=== PATIENT | male | born 1945 | race Caucasian/White ===

== ENCOUNTER 2020-08-14 11:25 | Day surgery (SDC) | payer MEDICARE, OTHER, SELFPAY ==
--- NOTE | 2020-08-11 19:05 | PCM.HP.BLA ---
History and Physical Date of Admission: 08/14/20 HISTORY AND PHYSICAL ? Gabbie Gary 1945 ? ? REFERRING PHYSICIAN: Jan Lujan III, MD ? CHIEF COMPLAINT: Consult (Gallbladder Mass) ? HPI: The patient is a pleasant 75 year old male who presents with findings of gallbladder mass by CT scans. He has had two serial CT scans - 02/10/2020 and 07/19/2020 with findings of a 1.6 cm gallbladder mass, with no changes during this time period. The patient denies abdominal pain. He denies nausea/vomiting. He denies jaundice or icterus. He has a history of prostate cancer (diagnosed in 2011) for which he is presently on Lupron, Zytiga and prednisone ? ? PAST MEDICAL HISTORY Diagnosis Date ? 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 BPH (benign prostatic hyperplasia) ? ? elevated PSA with negative biopsies ? Depression 08/30/2018 ? 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 Elevated ferritin level 12/17/2012 ? Essential hypertension, benign 01/08/2011 ? Hyperlipidemia LDL goal < 130 06/28/2010 ? Impaired fasting glucose 06/28/2010 ? Internal hemorrhoids without mention of complication ? ? Kidney stone 03/22/2012 ? Osteoarthritis of hip ? ? s/p bilateral total hip replacement ? Prostate cancer (HCC) ? ? PAST SURGICAL HISTORY Procedure Laterality Date ? COLONOSCOP W/ OR W/O BRSH SPEC ? 08/26/10 ? LITHROTRIPSY ? ? ? PROSTATE BIOPSY ? ? ? TOTAL HIP REPLACEMENT ? 10/22 ? Right ? TOTAL HIP REPLACEMENT ? 03/29 ? Left ? ? Current Outpatient Medications Medication Sig ? abiraterone (ZYTIGA) 250 mg tablet Take 4 tablets (1,000 mg) by mouth once daily on an empty stomach, 1 hour before or 2 hours after eating. ? predniSONE (DELTASONE) 5 mg tablet Take 1 tablet by mouth twice daily. ? hydroCHLOROthiazide (HYDRODIURIL, ESIDRIX) 25 mg tablet Take 1 tablet by mouth once daily. ? glipiZIDE (GLUCOTROL XL) 5 mg 24 hr tablet Take 1 tablet by mouth once daily. ? atorvastatin (LIPITOR) 20 mg tablet TAKE 1 TABLET BY MOUTH DAILY AT BEDTIME FOR CHOLESTEROL. ? losartan (COZAAR) 50 mg tablet Take 1 tablet by mouth once daily. ? albuterol HFA (PROAIR HFA) 90 mcg/actuation inhaler Inhale 2 Puffs as instructed every 6 hours as needed. ? ? ALLERGIES: Amlodipine and Lisinopril ? PERSONAL HISTORY: Social History ? Tobacco Use ? Smoking status: Never Smoker ? Smokeless tobacco: Never Used Vaping Use ? Vaping Use: Never used Substance Use Topics ? Alcohol use: Yes ? ? Comment: 1 drink per year ? Drug use: No ? FAMILY HISTORY Problem Relation Age of Onset ? None Mother ? ? other (CHF) Father ? ? Diabetes Son ? ? Hypertension Son ? ? None Brother ? ? None Sister ? ? The review of systems data was entered by the nurse and reviewed by me ? Nursing Notes: Anne Hatch LPN 08/06/2020 8:35 AM Signed REVIEW OF SYSTEMS: General: The patient denies fatigue, denies weight loss, denies weight gain, NOTES feeling hot, and denies feelings of cold. Eyes: The patient denies glaucoma, NOTES eye injury/surgery, does not wear glasses or contacts. Ear/Nose/Throat: The patient denies allergies, denies hayfever, denies ear infections, and denies bloody noses. Cardiovascular: The patient denies chest pain, denies heart disease, NOTES high blood pressure,denies cardiac stent, denies prior heart attack, denies irregular heart beat, denies high cholesterol, denies poor circulation, denies heart failure, other cardiac issues, denies claudication, denies cold feet, denies peripheral arterial stent. Respiratory: The patient denies tuberculosis, denies pneumonia, denies frequent cough, denies pulmonary embolism, denies shortness of breath, and denies coughing up blood. Gastrointestinal: The patient denies difficulty swallowing, denies acid reflux, denies ulcers, denies vomiting, denies jaundice/hepatitis, NOTES gallbladder problems, denies black or tarry stools, denies hemorrhoids, denies bleeding from rectum, denies diverticulitis, denies constipation, denies diarrhea, denies loss of stool control, and denies hernias. Kidney/Bladder: The patient NOTES kidney stones, denies urine infections, and denies bloody urine. Skin: The patient denies a history of skin cancer, denies bleeding/changing moles, and denies a history of skin rash. Neurologic: The patient denies a history of epilepsy/convulsions, denies headaches, denies head/spinal injuries, and denies stroke/TIA. Psychiatric: The patient denies psychiatric medications, denies depression, and denies voices, denies substance abuse. Endocrine: The patient denies thyroid disorders, denies diabetes, and denies hormonal problems. Hematologic: The patient NOTES a history of bruising, denies bleeding, and denies anemia, denies blood clots. Infections: The patient NOTES a history of measles and mumps, denies rheumatic fever, and denies sexually transmitted diseases. Musculoskeletal: The patient denies back pain/injury, denies back problems, denies sciatica, denies knee/foot trouble, NOTES arthritis, or denies gout. When was patient's last Mammogram screening? N/A Last Colonoscopy: 2010 [facility] ? ? PHYSICAL EXAMINATION: General: The patient is 75 year old male, well nourished, well hydrated in no acute distress. The patient is oriented to time, place, and person. VITALS: Blood pressure 138/74, pulse (!) 121, temperature (!) 35.6 ?C (96.1 ?F), height 179.1 cm (5' 10.5), weight 99.3 kg (219 lb), SpO2 98 %. Body mass index is 30.98 kg/m?. Head ? Normocephalic. EOM intact with sclera clear and no icterus noted. Neck - supple with no jugular venous distention noted. Trachea is midline. Lungs ? clear to auscultation. Normal breath sounds. No rales/rhonchi/wheezing noted. No labored breathing noted, such as retractions. No cough heard. Heart ? normal S1 and S2 auscultated. No rubs/clicks/murmurs noted. Regular rate. Abdomen ? soft and benign. Normal bowel sounds. No abdominal bruits noted. Difficult to determine if any masses or organomegaly due to body habitus. Extremities ? no calf tenderness noted. No pitting edema noted. Skin ? normal skin integrity. Neurological ? gait normal, no focal deficits noted. Psych ? calm and appropriate RADIOLOGIC STUDIES: As Noted ? ? IMPRESSION: gallbladder mass ? PLAN: I have discussed the above with the patient. I have reviewed the radiological studies. The fact that this lesion has not changed over several month - unlikely gallbladder cancer, in my opinion I have offered laparoscopic cholecystectomy, possible cholangiograms I have explained the procedure to the patient. I have counseled the patient as to the risks of the procedure, including but not limited to: infection, bleeding, injury to any blood vessels/nerves, scar tissue, injury to any intrabdominal organs, injury to bowel/bladder, injury to the common bile duct/biliary tree, bile leakage, intraabdominal abscess/bleeding, hernias at incisional sites, wound infections, complications of anesthesia, etc. ? the patient understands. ? The patient was offered a surgery/procedure . The provider and patient have discussed in detail the risk of exposure to and/or potential harm posed by the COVID-19 virus with having a surgery/procedure at this time versus the risk of? delaying the surgery/procedure. It is not possible to know either the risk of delaying the surgery or procedure or chance of getting an infection with perfect accuracy, but a joint decision was made between the patient and the provider ?to proceed at this time with the scheduled surgery/procedure. ? The patient wishes to proceed. He requests [facility] for surgery. I have answered all questions to the patient?s satisfaction and the patient has no further questions. ?. Diagnoses: (K82.8) Gallbladder mass Return to Clinic: The patient is instructed to follow-up with me after the procedure. ? Geraldine Tariq MD
--- NOTE | 2020-08-13 08:50 | EKG12_ITS ---
Test Reason : PREOP Blood Pressure : / mmHG Vent. 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
[2020-08-13 09:31] LABS: Hematocrit 38.8 % (40-54); Hemoglobin 12.7 g/dL (13.0-16.5); Mean Corp Hgb Conc 32.7 g/dL (32-36); Mean Corpuscular Hgb 30.6 pg (27.0-32.0); Mean Corpuscular Volume 93.5 fL (80-94); Mean Platelet Vol. 10.3 fl (6.2-12.0); Platelet Count 265 K/mm3 (150-450); RBC Distribution Width CV 13.6 % (11.6-14.6); RBC Distribution Width SD 46.6 fl (35.1-43.9); Red Blood Count 4.15 M/mm3 (4.6-6.2); White Blood Count 9.5 K/mm3 (4.4-11.0)
[2020-08-13 09:40] LABS: International Normalized Ratio 0.9
[2020-08-13 10:03] LABS: AST(SGOT) 18 U/L (15-37); Alanine Aminotransfer ALT/SGPT 36 U/L (16-61); Albumin, Serum 3.5 g/dL (3.2-5.0); Alkaline Phosphatase 87 U/L (45-117); Anion Gap 6 (5-15); BUN 35 mg/dL (7-18); Bilirubin, Direct 0.37 mg/dL (0.00-0.30); Calcium,Total 9.5 mg/dL (8.5-10.1); Chloride 104 mmol/L (98-107); EST Glomerular Filtration Rate 52 mL/min (>60); Est Glom Filt Rate - Afr Amer 63 mL/min (>60); Globulin 3.6 g/dL (2.2-4.2); Glucose 129 mg/dL (74-106); Potassium 3.8 mmol/L (3.5-5.1); Protein, Total 7.1 g/dL (6.4-8.2); Sodium Level 138 mmol/L (136-145)
[2020-08-14] VITALS (7 sets, daily range): BP systolic 100–141; BP diastolic 64–80; PULSE 79–90; RESP 12–16; TEMP 36–36.8; O2SAT 96–99
--- NOTE | 2020-08-14 | GALL_PTH ---
PATIENT: FLORIN CHAVEZ LOC: [facility] – [place], [place] U#:[id number] AGE/SX: 75/M ROOM: RE08/14/[address]: Dr. Geraldine Tariq MD : 1945 BED: DIS: 08/14/2020 SPEC #: [id number] RECD: 08/15/20 08:40 STATUS: MARCO ANTONIO REQ #: [id number] SAGAR: 08/14/20 00:[address]: Geraldine Tariq DEPT: SURGICAL PATHOLOGY RECD BY: Douglas Moreau ENTERED: 08/15/20 08:40 SP TYPE: LUIS HERNANDEZ DR: Dr. Jan Lujan III, MD Tissues: Gallbladder, NOS Procedures: Surgery Specimen Level III HEADER OPERATION: Laparoscopic cholecystectomy with IOC PRE-OP DIAGNOSIS: Gallbladder mass TISSUE SUBMITTED: Gallbladder MICROSCOPIC DIAGNOSIS Gallbladder, cholecystectomy: Chronic cholecystitis and cholelithiasis. AM:fran 08/16/2020 MICROSCOPIC DESCRIPTION Slides are reviewed. GROSS DESCRIPTION Received is one container labeled with the patient's name and designated gallbladder. The specimen consists of a gallbladder measuring 6 cm in length and up to 3 cm in diameter. The external surface is pink-chapa, smooth and glistening for the most part. Focally it is granular, hemorrhagic and contains cautery artifact. The gallbladder contains green-yellow mucoid bile and multiple irregular black stones measuring in aggregate 3.5 x 2 x 05 cm and 0.1 to 0.2 cm in greatest dimension. The mucosa is bile-stained and without any mass lesions. The gallbladder wall measures up to 0.3 cm in thickness. Rubber Trimmer sections from the gallbladder and the cystic duct are submitted in one cassette. / SJ:fran 08/15/20 TC:3 CPT: 42555
[2020-08-14] MEDS: Lactated Ringers 1,000 ML 100 ML IV (14:35)
--- NOTE | 2020-08-14 14:40 | EX.PCM.DISCH ---
Discharge Instructions Outpatient Procedure Reason For Visit: RITIKA [facility] Diet Discharge Diet: No restrictions (drink plenty of fluids, avoid carbonated beverages for a couple of days) Activity Discharge Activity: Return to Normal Activity (no lifting greater than 20 pounds for two weeks) and - Dressing / Incision Call your doctor if your incision/area has: Continuous Slow Oozing, Sudden Increased Bleeding and Increased Pain/ Swelling Follow Up Care Please Follow Up With: Geraldine Tariq MD When: in 1-2 weeks, call Test Results: Test results from this visit will be discussed in further detail at your follow-up appointment, if applicable. Discharge Plan Admission Attending Provider: Geraldine Tariq Primary Care Provider: Jan Lujan III Instructions Additional Instructions / Restrictions: Recommended pain control regimen - May take 600 mg ibuprofen (Motrin) and then in 3-4 hours, may take 650 mg acetaminophen (Tylenol), then in 3-4 hours may take 600 mg ibuprofen, then in 3-4 hours may take 650 mg acetaminophen and so on for 2-3 days May take narcotic pain medication for pain that is not controlled by above and at night for comfort through the night Leave dressings in place May get dressings wet in shower - do not scrub in the area and pat dry Ice applied to areas of discomfort may help No lifting/pushing/pulling greater than 20 pounds for two weeks Please call for a follow up appointment in 1-2 weeks, Discharge Orders/Prescriptions Prescriptions: New hydrocodone-acetaminophen 5-325 mg tablet 1 tab PO Q8H PRN (Reason: Pain) 5 Days Qty: 15 RF: 0 No Action losartan 50 MG tablet 50 mg PO DAILY RF: 0 atorvastatin 20 MG tablet 20 mg PO QHS RF: 0 hydrochlorothiazide 12.5 MG capsule 12.5 mg PO DAILY RF: 0 hydrocodone-acetaminophen 1 TABLET tablet 1 - 2 tab PO Q4H PRN PRN (Reason: Pain) Qty: 20 RF: 0 abiraterone 250 MG tablet 1,000 mg PO DAILY RF: 0 Other Ambulatory Orders: 12 Lead EKG (Routine) Location: None Selected Ordered By: Dr. Abbe Marina Referrals: Jan Lujan III, MD [Primary Care Provider] - Disposition Discharge Orders: Discharge Patient (Routine); Ordered 08/14/20 Ordered By: Dr. Geraldine Tariq
--- NOTE | 2020-08-14 14:43 | PCM.OPRPT ---
Report of Operation Date of Procedure: 08/14/20 Pre-Operative Diagnosis: gallbladder mass Post-Operative Diagnosis: same Surgery/Procedure Performed:: laparoscopic cholecystectomy Description of Surgical Findings:: very small cystic duct - 2mm, normal appearing gallbladder without unusual attachments to liver school psychologist assistant: None school psychologist assistant: [place] Type of Anesthesia: General/Regional Anesthesiologist: Morgan Joiner Specimen's removed: gallbladder and contents Drains: none Estimated Blood Loss (mL): > 10 Fluids Replaced: 1000 ml RL Description of Procedure: After informed consent was given, the patient was brought to the Operating Room. Appropriate time out protocol was followed. The patient was placed in the supine position. The patient was then placed under general endotracheal anesthesia by the anesthesia provider. The abdomen was then prepped with a sterile surgical skin preparation and sterile surgical drapes were placed. An area superior to the umbilical dimple was grasped with penetrating clamps and the skin and subcutaneous tissues were infiltrated with 0.25% marcaine with epinephrine. A skin incision was then made with a 15 blade scalpel. The anterior abdominal wall was elevated and a Veress needle was carefully inserted into the intraabdominal cavity. It was checked to be in the proper position with a normal saline drop test. A CO2 pneumoperitoneum was then created. Once this was achieved, then the Veress needle was removed and an 11mm trocar was placed in its stead. A 10mm laparoscope was then inserted into the trocar and careful attention was directed to the intraabdominal contents. There was no evidence of injury to any intraabdominal organs from insertion of the Veress needle or the trocar. Under direct visualization, a 5mm subxiphoid trocar and two lateral 5mm right subcostal trocars were placed. The skin and subcutaneous tissues at these sites were infiltrated with 0.25% marcaine with epinephrine prior to placement of these trocars. Attention was then directed to the right upper quadrant of the abdomen. Graspers were placed in the lateral trocars to grasp the distal aspect of the gallbladder and direct it cephalad and to grasp the gallbladder at Mcgrath?s pouch and direct it laterally. Dissection then began on the proximal gallbladder continuing down to the area of the triangle of Calot to bluntly dissect out the cystic duct. The neck of the gallbladder was identified and blunt dissection continued to dissect out a segment of the cystic duct. A clip was then placed on the neck of the gallbladder. A small ductotomy was then made. A Ranfac catheter was attempted to be placed in the duct, but the duct opening was too small - 2mm and therefore the intraoperative cholangiogram was aborted. Two clips were placed distal to the ductotomy and the cystic duct was then transected. The cystic artery was identified and clips were placed proximally and distally and then it was transected between the proximal and distal clips. The gallbladder was then from the liver bed using electrocautery. There was no extraordinary attachment of the gallbladder to the liver bed. Once from the liver bed, it was brought out via the umbilical port. It was then forwarded to pathology for analysis. The liver bed was carefully examined. There was no evidence of bile leakage or bleeding. The cystic duct stump and cystic artery stump had their clips intact and there was no evidence of bile leakage or bleeding. The remainder of the abdomen was grossly normal. The CO2 was released and all trocars removed intact. The periumbilical fascia was approximated with a [id number] 0 vicryl suture. All skin incision were closed with 4-0 monocryl in a subdermal fashion. Cavilol and Steristrips were used to reinforce the skin closure. Sterile dressings were applied to all wounds. Sponge, needle and instrument count was verified and correct at time of skin closure. The patient was extubated and brought to the Recovery Room in stable condition.T Complications none noted Admit VTE Documentation VTE Present on Admission: Yes VTE Mechan Device Prophylaxis: SCD's
== END 2020-08-14 17:36 ==
LOC: SDC 11:26 → AC 11:26
PROVIDERS: Anesthesiology; PCP Family Medicine; Referring Provider Surgery; Visit Provider Surgery
PROC: (CPT 47610; principal; 2020-08-14 12:40)
DX: K80.10 Calculus of gallbladder with chronic cholecystitis without obstruction (principal); Z85.46 Personal history of malignant neoplasm of prostate; H54.40 Blindness, one eye, unspecified eye; N40.0 Benign prostatic hyperplasia without lower urinary tract symptoms; E78.5 Hyperlipidemia, unspecified; I10 Essential (primary) hypertension; Z79.899 Other long term (current) drug therapy; I49.3 Ventricular premature depolarization; I45.19 Other right bundle-branch block; R79.89 Other specified abnormal findings of blood chemistry; Z87.442 Personal history of urinary calculi; Z86.2 Personal history of diseases of the blood and blood-forming organs and certain disorders involving the immune mechanism
CPT/HCPCS: 00790; 47562; 36415; 80048; 80076; 85027; 85610; 85730; 88304; 93005; J7050; J7120; J2405